=== PATIENT | female | born 1965 | race American Indian/Alaskan Native ===

== ENCOUNTER 2017-04-02 16:28 | Emergency (ER) | payer SELFPAY ==
[2017-04-02 16:50] VITALS: BP 151/80
[2017-04-02 17:22] LABS: Anion Gap 18 mmol/L; BUN/Creatinine Ratio 15.71; Blood Urea Nitrogen 11 mg/dL (7-17); Calcium 8.9 mg/dL (8.4-10.2); Carbon Dioxide 25 mmol/L (22-30); Chloride 98.7 mmol/L (98-107); Glucose 281 mg/dL (65-100); Potassium 4.9 mmol/L (3.6-5.0); Sodium 137 mmol/L (137-145)
[2017-04-02 17:34] LABS: Hematocrit 33.9 % (30.3-42.9); Hemoglobin 10.8 gm/dl (10.1-14.3); Mean Corpuscular HGB Conc 32 % (30-34); Mean Corpuscular Volume 75 fl (79-97); Platelet Count 261 K/mm3 (140-440); Red Blood Count 4.54 M/mm3 (3.65-5.03); Red Cell Distribution Width 19.6 % (13.2-15.2)
[2017-04-02 17:38] LABS: Mean Corpuscular Hemoglobin 24 pg (28-32)
--- NOTE | 2017-04-09 10:24 | ED Elopement Review ---
ED Pt Elopement review - Results review Lab results: Laboratory Tests 04/02/17 04/02/17 16:52 16:52 WBC 6.0 RBC 4.54 Hgb 10.8 Hct 33.9 MCV 75 L MCH 24 L MCHC 32 RDW 19.6 H Plt Count 261 Lymph % (Auto) Genetic Physician [place] % (Auto) Genetic Physician Eos % (Auto) Genetic Physician Baso % (Auto) Genetic Physician Lymph # Genetic Physician [place] # Genetic Physician Eos # Genetic Physician Baso # Genetic Physician Seg Neutrophils % Genetic Physician Seg Neutrophils # Genetic Physician Sodium 137 Potassium 4.9 Chloride 98.7 Carbon Dioxide 25 Anion Gap 18 BUN 11 Creatinine 0.7 Estimated GFR > 60 BUN/Creatinine Ratio 15.71 Glucose 281 H Calcium 8.9 Troponin T < 0.010 - Call Back decision Pt Call Back Decision: No action required
== END 2017-04-02 20:00 | disposition left against medical advice (07) ==
LOC: ED 16:28
DX: R07.9 Chest pain, unspecified (principal); R10.9 Unspecified abdominal pain; Z53.21 Procedure and treatment not carried out due to patient leaving prior to being seen by health care provider
CPT/HCPCS: 36415; 80048; 84484; 85025; 93005; 93010